=== PATIENT | female | born 1955 | race Caucasian/White ===

== ENCOUNTER → 2020-10-15 12:09 | Outpatient (CLI) | payer MEDICARE, OTHER, SELFPAY ==
--- NOTE | 2020-10-15 12:25 | DI.RAD.S_ITS ---
PROCEDURE: XR TIBIA FUBULA RT 2V INDICATIONS: FALL TECHNIQUE: 2 views of the tibia and fibula were acquired. COMPARISON: None. FINDINGS: Bones: No fractures or dislocations. No suspicious bony lesions. Soft tissues: No suspicious soft tissue calcifications or masses. IMPRESSION: No fracture. Dictated by: Cheko Schwartz M.D. on 10/15/2020 at 13:30 Approved by: Cheko Schwartz M.D. on 10/15/2020 at 13:31
== END ==
PROVIDERS: Family Provider Physician Assistant; PCP Physician Assistant; Referring Provider Nurse Practitioner Family; Visit Provider Nurse Practitioner Family
DX: T14.90XA Injury, unspecified, initial encounter (principal); W10.8XXD Fall (on) (from) other stairs and steps, subsequent encounter
CPT/HCPCS: 73590

== ENCOUNTER → 2020-10-22 12:48 | Outpatient (CLI) | payer MEDICARE, OTHER, SELFPAY ==
--- NOTE | 2020-10-22 | DI.RAD.S_ITS ---
PROCEDURE: XR FOOT RT 2V INDICATIONS: FRACTURE OF DISTAL FIBULA AND RIGHT MALLEOLAR TECHNIQUE: 2 views of the foot were acquired. COMPARISON: [facility], CR, XR ANKLE RT 2V, 10/22/2020, 12:48. [facility], RG, XR ANKLE 3V RIGHT, 09/05/2020, 15:34. [facility], CR, FOOT 3V RIGHT, 12/29/2016, 9:02. FINDINGS: Bones: No fractures or dislocations. No suspicious bony lesions. Mild 1st MTP and diffuse interphalangeal joint space narrowing with periarticular osteophyte formation. Soft tissues: No tibiotalar joint effusion. Achilles tendon appears normal. 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 Dictated by: Allan LAINEZ Interpreted: Cheko Schwartz MD on 10/23/2020 at 15:15 Transcribed by: YUNIEL on 10/23/2020 at 15:19 Approved by: Cheko Schwartz M.D. on 10/23/2020 at 17:11
--- NOTE | 2020-10-22 | DI.RAD.S_ITS ---
PROCEDURE: XR ANKLE RT 2V INDICATIONS: FRACTURE OF DISTAL FIBULA AND RIGHT MALLEOLAR TECHNIQUE: 3 views of the ankle were acquired. COMPARISON: [facility], RG, XR ANKLE 3V RIGHT, 09/05/2020, 15:34. [facility], CR, ANKLE 3 VIEWS RIGHT, 12/29/2016, 9:02. FINDINGS: Bones: Fracture alignment is stable and fracture lucency is less distinct indicating healing of the transversely oriented fracture extending through the distal fibular metaphysis. Mild adjacent soft tissue swelling. Ankle mortise is symmetric. Mild regional osteopenia. Soft tissues: No tibiotalar joint effusion. Achilles tendon appears normal. IMPRESSION: Further healing of distal fibular metaphyseal fracture. Dictated by: Allan GONZALEZ Interpreted: Cheko Schwartz MD on 10/23/2020 at 16:52 Approved by: Cheko Schwartz M.D. on 10/23/2020 at 17:16
== END ==
PROVIDERS: Family Provider Physician Assistant; PCP Nurse Practitioner Family; Referring Provider Nurse Practitioner Family; Visit Provider Nurse Practitioner Family
DX: S82.831G Other fracture of upper and lower end of right fibula, subsequent encounter for closed fracture with delayed healing (principal); M25.571 Pain in right ankle and joints of right foot; M19.071 Primary osteoarthritis, right ankle and foot; M85.871 Other specified disorders of bone density and structure, right ankle and foot; X58.XXXD Exposure to other specified factors, subsequent encounter
CPT/HCPCS: 73600; 73620

== ENCOUNTER → 2021-06-24 07:58 | Outpatient (CLI) | payer MEDICARE, OTHER, SELFPAY ==
--- NOTE | 2021-06-24 | DI.MG.S_ITS ---
BILATERAL DIGITAL SCREENING MAMMOGRAM 3D/2D WITH CAD: 06/24/2021 CLINICAL: Routine screening. Baseline by default. Comparison is made to exams dated: 08/30/2011 mammogram, 09/25/2009 mammogram, and 11/04/2004 mammogram - [facility]. The tissue of both breasts is predominantly fatty. Current study was also evaluated with a Computer Aided Detection (CAD) system. No significant masses, calcifications, or other findings are seen in either breast. There has been no significant interval change. IMPRESSION: NEGATIVE There is no mammographic evidence of malignancy. A 1 year screening mammogram is recommended. This exam was interpreted at Station ID: [id number]. NOTE: For mammograms, a report in lay terms will be sent to the patient. Approximately 15% of breast malignancies will not be visualized mammographically. In the management of a palpable breast mass, a negative mammogram must not discourage biopsy of a clinically suspicious lesion. Electronically Signed By: Jac Hayden M.D., jr/obdulio:06/24/2021 13:54:20 letter sent: Normal Exam ACR BI-RADS Category 1: Negative 3341F
== END ==
PROVIDERS: Family Provider Physician Assistant; PCP Nurse Practitioner Family; Referring Provider Nurse Practitioner Family; Visit Provider Nurse Practitioner Family
DX: Z12.31 Encounter for screening mammogram for malignant neoplasm of breast (principal)
CPT/HCPCS: 77063; 77067

== ENCOUNTER → 2022-07-15 16:22 | Outpatient (CLI) | payer MEDICARE, OTHER, SELFPAY ==
--- NOTE | 2022-07-15 16:25 | DI.MRI.S_ITS ---
PROCEDURE: MR SHOULDER RT WO CON INDICATIONS: injury of right shoulder and upper arm TECHNIQUE: Noncontrast oblique coronal T2 fast spin echo with fat saturation, oblique sagittal T1 spin echo and T2 fast spin echo with fat saturation, axial T1 spin echo and T2 fast spin echo with fat saturation through the shoulder. COMPARISON: [facility], CR, XR SHOULDER 2+ VIEWS RIGHT, 07/07/2022, 13:41. FINDINGS: Image quality: Excellent. Rotator cuff: Low-grade articular and bursal surface partial thickness tear involving distal supraspinatus at its insertion on the humeral head is seen extending to musculotendinous junction. Distal infraspinatus tendinosis is noted. Low-grade intrasubstance partial-thickness tear involving distal subscapularis is seen. No full-thickness rotator cuff tendon rupture. Sagittal images demonstrate no significant rotator cuff muscle atrophy. Bones and bursae: Moderate acromioclavicular joint osteoarthritic changes are seen with joint space narrowing, subchondral sclerosis and marginal osteophyte formation. T2 hyperintense structure within superior glenoid is seen measures 8 mm in size with internal hypointense signal which may represent a small intraosseous hemangioma. No fracture or dislocation. Small amount of subacromial subdeltoid bursal fluid is seen, no gross loose bodies. Capsule and soft tissues: There is no gross focal labral tear. The long head of the biceps tendon appears thickened near greater tuberosity of humeral head. The rotator interval appears normal, without fibrosis. The coracohumeral ligament is normal in thickness. IMPRESSION: 1. Low-grade articular and bursal surface partial thickness tear involving distal supraspinatus extending to musculotendinous junction. Distal infraspinatus tendinosis. Low-grade partial-thickness tear involving distal subscapularis. No full-thickness rotator cuff tendon rupture. 2. Moderate acromioclavicular joint osteoarthritis. No acute fracture or dislocation. Benign-appearing intraosseous lesion involving superior glenoid and may represent small intraosseous hemangioma. Small amount of subacromial subdeltoid bursal fluid. 3. No gross focal labral tear. 4. Proximal long head of biceps tendinosis. Dictated by: Suhas Simeon M.D. on 07/16/2022 at 8:13 Approved by: Suhas Simeon M.D. on 07/16/2022 at 8:20
== END ==
PROVIDERS: Family Provider Physician Assistant; PCP Nurse Practitioner Family; Referring Provider Student in an Organized Health Care Education/Training Program; Visit Provider Student in an Organized Health Care Education/Training Program
DX: S46.011A Strain of muscle(s) and tendon(s) of the rotator cuff of right shoulder, initial encounter (principal); M19.011 Primary osteoarthritis, right shoulder
CPT/HCPCS: 73221

== ENCOUNTER → 2023-11-22 09:14 | Outpatient (CLI) | payer MEDICARE, OTHER, SELFPAY ==
--- NOTE | 2023-11-22 | DI.ECHO.S_ITS ---
Home [facility]---------+ Hospital : : [address] : : [place] : : [id number] : : Phone: [phone] Echocardiogram Report + + :Name: TERRIE DEVI Study Date: 11/22/2023 Height: 63 in : :[facility] ReadingLocation: Weight: 135 lb: : Gender: Female BSA: 1.6 m2 : :: 1955 Age: 68 yrs BP: 97/65 mmHg: :Reason For Study: CARDIAC MURMUR : :Ordering Physician: ROMERO, : :MARIAM Performed By: Marielena Hunt : :Referring: MARIAM JASSO : + + Interpretation Summary Normal sinus rhythm. Normal LV size, wall thickness, wall motion and LV systolic function. EF is 60-65%. Severe LA enlargement; mild RV enlargement with mildly reduced RV systolic function. There is posterior MV leaflet prolapse with severe eccentric anteroseptally directed mitral regurgitation. Regurgitant volume is 65 mL; effective regurgitant orifice area is 0.5 cm squared. Estimated PA systolic pressure is 19 mm Hg assuming RA pressure of 3 mm Hg. No prior study available for comparison. Recommend cardiology consult. Procedure: A two-dimensional transthoracic echocardiogram with color flow and Doppler was performed. The study quality was technically adequate. There is no prior echocardiogram noted for this patient. The patient was in sinus rhythm with heart rates between 85-62 bpm during the exam. Left Ventricle: The left ventricle is normal in size and wall thickness. The ejection fraction is estimated to be 60-65%. Right Ventricle: The right ventricle is mildly dilated. Mildly reduced RV systolic function. Atria: The left atrium is severely dilated. Right atrial size is normal. There is no Doppler evidence for an interatrial shunt. Mitral Valve: There is prolapse of the posterior mitral valve leaflet(s). There is moderate to severe mitral regurgitation. The mitral regurgitant jet is eccentrically directed. Aortic Valve: The aortic valve is trileaflet. The aortic valve opens well. There is no aortic valve stenosis. There is mild aortic regurgitation. Tricuspid Valve: The tricuspid valve is normal in structure and function. There is mild to moderate tricuspid regurgitation. Pulmonic Valve: The pulmonic valve leaflets are thin and pliable; valve motion is normal. There is mild pulmonic regurgitation. Great Vessels: The aortic root is normal size. The dimensions of the ascending aorta are normal. The IVC is of normal diameter and collapses greater than 50% with a sniff. This suggests a low right atrial pressure of 3 mm Hg. Pericardium/ Pleura There is no pericardial effusion. There is no pleural effusion. MMode/2D Measurements & Calculations LVIDd: 5.5 cm LVOT diam: 2.0 cm LVIDs: 3.7 cm Ao root diam: 2.6 cm FS: 32.6 % asc Aorta Diam: 2.9 cm IVSd: 0.74 cm Ao Arch Diam (Prox Trans): 2.2 cm LVPWd: 0.75 cm LV mcintyre. diameter/BSA (cm/m^2): 3.3 LV sys. diameter/BSA (cm/m^2): 2.3 LA A2 area: 22.3 cm2 RA long axis: 4.4 cm LA A4 area: 20.9 cm2 RA area: 11.8 cm2 LA length (vol): 5.0 cm RA vol: 27.2 ml LA vol: 79.3 ml RA : 16.6 ml/m2 LA vol index: 48.4 ml/m2 IVC diam: 1.5 cm RVD1 (basal): 3.7 cm RVD2 (mid): 2.5 cm TAPSE: 1.6 cm Doppler Measurements & Calculations Ao V2 max: 92.7 cm/sec LVOT Max Davy: 81.3 cm/sec Ao V2 mean: 64.0 cm/sec LV V1 max P.6 mmHg Ao max P.4 mmHg LV V1 VTI: 16.5 cm Ao mean P.9 mmHg PORTER(I,D): 3.1 cm2 Ao V2 VTI: 16.6 cm PORTER(V,D): 2.7 cm2 sev ratio: 1.00 PORTER indexed to BSA (cm^2/m^2): 1.9 MV E max davy: 99.3 cm/sec PA V2 max: 87.8 cm/sec MV A max davy: 59.0 cm/sec PA V2 mean: 59.7 cm/sec MV E/A: 1.7 PA mean P.7 mmHg Med Peak E' Davy: 7.8 cm/sec PA pr(Accel): 32.8 mmHg E/E' med: 12.7 Lat Peak E' Davy: 9.6 cm/sec E/E' lat: 10.4 E/e' average: 11.5 MV dec time: 0.17 sec MR ERO: 0.48 cm2 MR PISA: 5.7 cm2 SV(LVOT): 51.1 ml MR flow rate: 230.8 cm3/sec MR PISA radius: 0.95 cm Electronically signed by: Maria C Quezada M.D. on Reading Physician:11/23/2023 01:23 AM
--- NOTE | 2023-11-22 | DI.MG.S_ITS ---
BILATERAL DIGITAL SCREENING MAMMOGRAM 3D/2D WITH CAD: 11/22/2023 CLINICAL: Routine screening. Family history of breast cancer. Comparison is made to exams dated: 06/24/2021 mammogram and 08/30/2011 mammogram - [facility]. There are scattered areas of fibroglandular density (category b / 25%-50% glandular tissue). Current study was also evaluated with a Computer Aided Detection (CAD) system. No significant masses, calcifications, or other findings are seen in either breast. There has been no significant interval change. IMPRESSION: NEGATIVE There is no mammographic evidence of malignancy. A 1 year screening mammogram is recommended. Based on the Tyrer Cuzick model (a risk assessment model) the patient's lifetime risk is 4.2% and her 10 year risk is 2.3%. According to the ACR, ACS, and NCCN guidelines, an annual breast MRI exam along with mammogram is recommended if the patient's lifetime risk is 20% or greater. This exam was interpreted at Station ID: [id number]. NOTE: For mammograms, a report in lay terms will be sent to the patient. Approximately 15% of breast malignancies will not be visualized mammographically. In the management of a palpable breast mass, a negative mammogram must not discourage biopsy of a clinically suspicious lesion. Electronically Signed By: Colby proctor/obdulio:11/22/2023 14:32:43 letter sent: Normal Exam ACR BI-RADS Category 1: Negative 3341F
== END ==
PROVIDERS: Family Provider Physician Assistant; PCP Nurse Practitioner Family; Referring Provider Student in an Organized Health Care Education/Training Program; Visit Provider Student in an Organized Health Care Education/Training Program
DX: Z12.31 Encounter for screening mammogram for malignant neoplasm of breast (principal); Z80.3 Family history of malignant neoplasm of breast; I08.3 Combined rheumatic disorders of mitral, aortic and tricuspid valves; R01.1 Cardiac murmur, unspecified
CPT/HCPCS: 77063; 77067; 93306

== ENCOUNTER → 2024-03-23 12:16 | Outpatient (CLI) | payer MEDICARE, OTHER, SELFPAY ==
--- NOTE | 2024-03-23 12:34 | EKG_ITS ---
[address] [address] [place] [address] Test Date: 2024-03-23 Pat Name: Sofy Toth Department: [facility] Room: Gender: Female [employer]: ADDY : 1955 Requested By: Order Number: [id number] Reading MD: Dallin Campuzano MD Measurements Intervals [place] Rate: 109 P: 76 AK: 156 QRS: -45 QRSD: 94 T: 101 QT: 356 QTc: 479 Interpretive Statements Sinus tachycardia with occasional premature ventricular complexes Possible Left atrial enlargement Left anterior fascicular block Abnormal QRS-T angle, consider primary T wave abnormality NO PRIOR TRACING Electronically Signed On 03-23-2024 13:47:29 PST by Dallin Campuzano MD
== END ==
PROVIDERS: Family Provider Physician Assistant; PCP Student in an Organized Health Care Education/Training Program; Referring Provider Internal Medicine Cardiovascular Disease; Visit Provider Internal Medicine Cardiovascular Disease
DX: R00.2 Palpitations (principal)
CPT/HCPCS: 93005; 93010